=== PATIENT | female | born 1985 | race Caucasian/White ===

== ENCOUNTER 2024-06-24 06:02 | Day surgery (SDC) | payer OTHER, SELFPAY ==
[2024-06-24] VITALS (8 sets, daily range): BP systolic 0–131; BP diastolic 56–91; BMI 35.6
[2024-06-24] MEDS: TYLENOL 1000 MG PO (06:32)
[2024-06-24] MEDS: NORMOSOL-R/PLASMALYTE-A 1000 IV (06:47)
== END 2024-06-24 09:30 | disposition home or self-care (01) ==
LOC: SDS 06:02
PROVIDERS: ATTENDING PHYSICIAN Surgery
DX: D17.21 Benign lipomatous neoplasm of skin and subcutaneous tissue of right arm (principal)
CPT/HCPCS: 21931; 88304